=== PATIENT | female | born 2000 | race African-American/Black ===

== ENCOUNTER 2023-05-28 18:39 | Outpatient (CLI) ==
[~2023-05-28] VITALS: Ht 170.2 cm; Wt 83.2 kg
[2023-05-28 18:49] VITALS: BP 115/57
== END 2023-05-28 20:00 | disposition home or self-care (01) ==
LOC: M LDO 18:39
PROVIDERS: ATTEND Obstetrics & Gynecology
DX: O47.1 False labor at or after 37 completed weeks of gestation (principal); Z3A.39 39 weeks gestation of pregnancy
CPT/HCPCS: 59025; G0463

== ENCOUNTER 2023-06-09 12:05 | Inpatient (IN) | payer OTHER ==
[~2023-06-09] VITALS: Ht 167.6 cm; Wt 84.1 kg
[2023-06-09] VITALS (8 sets, daily range): BP systolic 101–142; BP diastolic 56–92; O2SAT 99
[2023-06-09] MEDS ORDERED: LACTATED RINGER'S 1000 ML IV STA (12:16)
[2023-06-09] MEDS ORDERED: PRENTAB9 PO (12:19)
[2023-06-09] MEDS ORDERED: ACET-907 PO (12:19)
[2023-06-09] MEDS ORDERED: CARBOPROST TROMETHAMINE 250 MCG/ML AMP IM PRN (12:20)
[2023-06-09] MEDS ORDERED: LIDOCAINE 1% MDV 20ML VIAL INFIL PRN (12:20)
[2023-06-09] MEDS ORDERED: METHYLERGONOVINE MALEATE 0.2MG/ML 1ML VIAL IM PRN (12:20)
[2023-06-09] MEDS ORDERED: TRANEXAMIC ACID INJection 1,000 MG in NS 100 ML IV PRN (12:20)
[2023-06-09] MEDS ORDERED: OXYTOCIN INJ 10UNITS/ML 1ML VIAL IV PRN (12:20)
[2023-06-09] MEDS ORDERED: LR 1,000 ML IV SCH ×2 (12:20)
[2023-06-09] MEDS ORDERED: OXYTOCIN DRIP 30 UNITS in IV 1 EA IV SCH (12:20)
[2023-06-09] MEDS ORDERED: OXYTOCIN DRIP 30 UNITS in IV 1 EA IV PRN ×6 (12:20)
[2023-06-09] MEDS ORDERED: OXYTOCIN INJ 10UNITS/ML 1ML VIAL IM PRN (12:20)
[2023-06-09] MEDS ORDERED: HOME MED LIST COMPLETE! XX SCH (12:35)
[2023-06-09 13:46] LABS: HEMATOCRIT 30.7 % (36.0-47.0); HEMOGLOBIN 9.4 g/dl (12.0-15.5); MEAN CORPUSCULAR HEMOGLOBIN 27.2 pg (27.0-33.0); MEAN CORPUSCULAR HGB CONC 30.6 g/dl (32.0-36.5); PLATELET COUNT, AUTOMATED 324 10^3/uL (150-450); RED BLOOD COUNT 3.45 10^6/uL (4.00-5.40); WHITE BLOOD COUNT 6.8 10^3/uL (4.0-10.0)
[2023-06-09] MEDS: miSOPROStol 50MCG 1/2 TABLET PO PRN ×3 (13:51→23:00)
[2023-06-10] VITALS (39 sets, daily range): BP systolic 114–149; BP diastolic 58–92; O2SAT 99
[2023-06-10] MEDS ORDERED: LR 500 ML IV ONE (02:28)
[2023-06-10] MEDS: miSOPROStol 50MCG 1/2 TABLET PO PRN ×2 (06:43→11:35)
[2023-06-10] MEDS: NALBUPHINE HCL (10 MG/ML) 100MG/10ML MDV IV PRN ×2 (12:43→18:50)
[2023-06-10] MEDS: PROMETHAZINE 25MG/ML 1ML VIAL IV PRN ×2 (12:44→18:50)
[2023-06-10] MEDS ORDERED: ONDANSETRON 4MG 2ML VIAL IV PRN (20:10)
[2023-06-10] MEDS ORDERED: ePHEDrine SULFATE 25 MG/5 ML(5MG/ML) SYRINGE IVP PRN (20:10)
[2023-06-10] MEDS ORDERED: EPIDURAL/PCA KEYS XX PRN (20:10)
[2023-06-10] MEDS ORDERED: LR 500 ML IV PRN (20:10)
[2023-06-10] MEDS ORDERED: FENTANYL/ROPIVACAINE/NACL BAG 100 ML EPIDURAL SCH (20:10)
[2023-06-10] MEDS ORDERED: NALOXONE INJ 0.4MG/1ML VIAL IV PRN (20:10)
[2023-06-10] MEDS ORDERED: diphenhydrAMINE 50MG/ML VIAL IV PRN (20:10)
[2023-06-11] VITALS (14 sets, daily range): BP systolic 112–171; BP diastolic 61–130; O2SAT 99–100
[2023-06-11] MEDS ORDERED: DIBUCAINE 1% OINTMENT 30GM TOP PRN (01:55)
[2023-06-11] MEDS ORDERED: ANUSOL HC CREAM 30GM TOP PRN (01:55)
[2023-06-11] MEDS ORDERED: ACETAMINOPHEN TAB 650MG DOSE (2X325MG) PO PRN (01:55)
[2023-06-11] MEDS ORDERED: DOCUSATE SODIUM 100MG CAPSULE PO PRN (01:55)
[2023-06-11] MEDS ORDERED: ACETAMINOPHEN 500 MG TAB PO PRN (01:55)
[2023-06-11] MEDS ORDERED: IBUPROFEN 800 MG TAB PO PRN (01:55)
[2023-06-11] MEDS ORDERED: METHYLERGONOVINE MALEATE 0.2 MG TAB PO PRN (01:55)
[2023-06-11] MEDS ORDERED: RHOGAM 300MCG (1500IU) INJ IM SCH (01:55)
[2023-06-11] MEDS: PRENATAL VITAMINS CHEWABLE TABLET PO SCH (08:12)
[2023-06-11] MEDS: FERROUS SULFATE 325MG TAB PO SCH (08:12)
[2023-06-11] MEDS: IBUPROFEN 600MG TAB PO PRN ×2 (08:12→18:38)
[2023-06-12 06:00] VITALS: BP 127/78
[2023-06-12 08:21] LABS: HEMATOCRIT 27.8 % (36.0-47.0); HEMOGLOBIN 8.5 g/dl (12.0-15.5); MEAN CORPUSCULAR HEMOGLOBIN 27.8 pg (27.0-33.0); MEAN CORPUSCULAR HGB CONC 30.6 g/dl (32.0-36.5); MEAN CORPUSCULAR VOLUME 90.8 fl (80.0-96.0); PLATELET COUNT, AUTOMATED 345 10^3/uL (150-450); RED BLOOD COUNT 3.06 10^6/uL (4.00-5.40); WHITE BLOOD COUNT 11.5 10^3/uL (4.0-10.0)
[2023-06-12] MEDS: IBUPROFEN 600MG TAB PO PRN (09:29)
[2023-06-12] MEDS: PRENATAL VITAMINS CHEWABLE TABLET PO SCH (09:29)
[2023-06-12] MEDS: FERROUS SULFATE 325MG TAB PO SCH (09:29)
[2023-06-12] MEDS ORDERED: IBUP-1022 PO (10:25)
[2023-06-12] MEDS ORDERED: COLA100C5 PO (10:25)
[2023-06-12] MEDS ORDERED: ACET1TAB55 PO (10:25)
[2023-06-13] MEDS ORDERED: MEASLES,MUMPS,RUBELLA VACCINE INJ (MMR-II) SC.IMMUN ONE (09:00)
== END 2023-06-12 18:30 | disposition home or self-care (01) | DRG 807 ==
LOC: M LDI 12:05 → M OBS 06-11 04:19
PROVIDERS: ADMIT Obstetrics & Gynecology; ATTEND Obstetrics & Gynecology
PROC: 3E033VJ Introduction of Other Hormone into Peripheral Vein, Percutaneous Approach (ICD-10-PCS; 2023-06-09)
PROC: 3E0P7VZ Introduction of Hormone into Female Reproductive, Via Natural or Artificial Opening (ICD-10-PCS; 2023-06-09)
PROC: 10E0XZZ Delivery of Products of Conception, External Approach (ICD-10-PCS; principal; 2023-06-11)
PROC: 0KQM0ZZ Repair Perineum Muscle, Open Approach (ICD-10-PCS; 2023-06-11)
PROC: 10907ZC Drainage of Amniotic Fluid, Therapeutic from Products of Conception, Via Natural or Artificial Opening (ICD-10-PCS; 2023-06-11)
DX: O48.0 Post-term pregnancy (principal); Z37.0 Single live birth; Z3A.41 41 weeks gestation of pregnancy; O69.82X0 Labor and delivery complicated by other cord entanglement, without compression, not applicable or unspecified; O70.1 Second degree perineal laceration during delivery

== ENCOUNTER 2024-02-14 08:56 | Emergency (ER) | payer OTHER ==
[~2024-02-14] VITALS: Ht 167.6 cm; Wt 88.0 kg
[~2024-02-14 08:56] MED LIST: ACET-907 PO; ACET1TAB55 PO; COLA100C5 PO; IBUP-1022 PO; PRENTAB9 PO
[2024-02-14] MEDS ORDERED: OFLO5DRO OU (12:06)
[2024-02-14] MEDS ORDERED: AMOX875T2 PO (12:06)
[2024-02-14 12:26] VITALS: BP 136/71; TEMP 97.5; O2SAT 98
== END 2024-02-14 12:28 | disposition home or self-care (01) ==
LOC: M ED 09:52
DX: J06.9 Acute upper respiratory infection, unspecified (principal); R05.9 Cough, unspecified; H10.9 Unspecified conjunctivitis; Z79.2 Long term (current) use of antibiotics; Z79.1 Long term (current) use of non-steroidal anti-inflammatories (NSAID); Z79.899 Other long term (current) drug therapy

== ENCOUNTER 2024-04-15 18:06 | Emergency (ER) | payer OTHER ==
[~2024-04-15] VITALS: Ht 167.6 cm; Wt 89.1 kg
[~2024-04-15 18:06] MED LIST changes: +AMOX875T2 PO; +OFLO5DRO OU
[2024-04-16] MEDS ORDERED: CEFD1CAP9 PO (01:52)
[2024-04-16] MEDS: CEFDINIR 300 MG CAP (OMNICEF) PO ONE (02:00)
[2024-04-16 02:36] VITALS: BP 122/77; TEMP 97.2; O2SAT 98
== END 2024-04-16 02:38 | disposition home or self-care (01) ==
LOC: M ED 18:06
DX: N30.90 Cystitis, unspecified without hematuria (principal); Z88.2 Allergy status to sulfonamides; Z88.8 Allergy status to other drugs, medicaments and biological substances; Z79.1 Long term (current) use of non-steroidal anti-inflammatories (NSAID); Z79.2 Long term (current) use of antibiotics; Z79.810 Long term (current) use of selective estrogen receptor modulators (SERMs)